=== PATIENT | female | born 1985 | race Hispanic/Latino ===

== ENCOUNTER 2018-12-10 16:29 | Inpatient (IN) | payer BC ==
[2018-12-10] MEDS ORDERED: Piperacillin/Tazobactam 4.5 GM VIAL ONE (17:31)
[2018-12-10] MEDS ORDERED: Sodium Chloride 0.9% 100 ML ONE (17:32)
--- NOTE | 2018-12-10 17:50 | RAD ---
LEFT TIBIA AND FIBULA 2 VIEWS: Dt: 12/10/18 HISTORY: Tibia and fibula pain. FINDINGS: There are no signs of fracture or other acute bony findings. IMPRESSION: No acute findings. POS: [facility]
[2018-12-10 18:24] LABS: #Basophils 0.1 thou/uL (0.0-0.2); #Eosinphils 0.1 thou/uL (0.0-0.7); #Monocytes 0.4 thou/uL (0.11-0.59); #Neutrophils 5.2 thou/uL (1.40-6.50); %Basophils 0.8 % (0.0-1.0); %Eosinophils 1.6 % (0.0-10.0); %Lymphocytes 33.6 % (21.0-51.0); %Monocytes 4.7 % (0.0-10.0); %Neutrophils 59.3 % (42.0-75.0); Hemoglobin 12.6 g/dL (12.0-16.0); Mean Corpuscular HGB CONC 32.8 g/dL (32.0-36.0); Mean Corpuscular Hemoglobin 30.9 pg (27.0-31.0); Mean Corpuscular Volume 94.2 fL (78.0-98.0); Mean Platelet Volume 7.7 fL (7.4-10.4); Platelet Count 325 thou/uL (130-400); RBC Distribution Width 11.7 % (11.5-14.5); Red Blood Cell (RBC) Count 4.09 mill/uL (4.20-5.40); White Blood Cell (WBC) Count 8.8 thou/uL (4.8-10.8)
[2018-12-10 18:45] LABS: BHCG - Serum Negative (NEGATIVE); Pregs Control Background? CLEAR/WHITE (CLR/WHITE); Pregs Control Bar Appear? YES (CONTROL BAR)
[2018-12-10 19:02] LABS: Chloride 105 mmol/L (98-107); Potassium 4.1 mmol/L (3.5-5.1); Sodium 135 mmol/L (136-145)
[2018-12-10 19:03] LABS: Calcium 9.7 mg/dL (7.8-10.44)
[2018-12-10 19:04] LABS: Globulin 4.1 g/dL (2.4-3.5); Glucose 84 mg/dL (70-105); Protein, Total 8.1 g/dL (6.0-8.3)
[2018-12-10 19:05] LABS: Anion Gap 14 mmol/L (10-20); Bilirubin, Total 0.3 mg/dL (0.2-1.2); Carbon Dioxide 20 mmol/L (22-29)
[2018-12-10 19:06] LABS: Alkaline Phosphatase 49 U/L (40-150)
[2018-12-10 19:07] LABS: Calc. Creatinine Clearance 0 mL/min (70-130); Estimated GFR-MDRD 82
[2018-12-10 19:08] LABS: BUN (Urea Nitrogen) 17 mg/dL (7.0-18.7)
[2018-12-10 19:09] LABS: AST (SGOT) 18 U/L (5-34)
--- NOTE | 2018-12-10 19:09 | ULT ---
LEFT LOWER EXTREMITY VENOUS DUPLEX STUDY: Indication: Left lower extremity pain and edema. Injury 9 days ago. FINDINGS: Deep veins of left lower extremity were evaluated with color doppler and spectral analysis. Compressi on study is performed. There is normal compression and blood flow. No evidence of DVT. IMPRESSION: No evidence of left lower extremity DVT. POS: [facility]
[2018-12-10 19:10] LABS: ALT (SGPT) 15 U/L (8-55)
--- NOTE | 2018-12-10 20:28 | HP ---
PRIMARY CARE PHYSICIAN: Dr. Hugo Rodas. CHIEF COMPLAINT: Left lower extremity infection and wound. HISTORY OF PRESENT ILLNESS: Ms. Larsen is a 33-year-old female with no past medical history, who presents to the emergency department for worsening left lower extremity cellulitis. The patient's swelling started after she fell around like a week and a half ago. The patient used some rubbing alcohol, but did not help her much. The patient was seen by her primary care physician and was started her on clindamycin. The patient has been on clindamycin for a week without any help. The patient was also taking Bactrim as well. The patient denies any fever or chills, but does report pain. The patient denies any history of diabetes. The patient was accompanied by her . The patient denies any nausea, vomiting, diarrhea, or abdominal pain. ALLERGIES: NO KNOWN ALLERGIES TO DRUGS. CURRENT MEDICATIONS: 1. Bactrim. 2. Clindamycin. SOCIAL HISTORY: The patient denies any drug use, alcohol, or smoking. FAMILY HISTORY: Reports history of diabetes. PAST SURGICAL HISTORY: No known surgical history. PAST MEDICAL HISTORY: No known past medical history. REVIEW OF SYSTEMS: A 10-point review of system negative other than mentioned in the HPI. PHYSICAL EXAMINATION: VITAL SIGNS: Blood pressure of 108/63, pulse 85, respiratory rate 20, temperature 97.8, O2 saturation 96% on room air. GENERAL: The patient is alert and cooperative. HEAD: Atraumatic. EARS, NOSE, AND THROAT: No exudate or swelling or discharge noted. EYES: Extraocular movement intact. NECK: No lymphadenopathy noted. CARDIOVASCULAR: Regular rate and rhythm. No murmur, rubs, or gallops. PULMONARY: Clear bilaterally. No wheezes. ABDOMEN: Soft, nontender. Bowel sounds positive. EXTREMITIES: Right lower extremity within normal limits. Left lower extremity below knee and above the ankle, the patient has erythema, swelling, and tenderness. There seems to be abrasion, which seems to be non-oozing or bleeding at this point. NEURO: The patient is alert. SKIN: Except for mentioned in the extremity examination appears to be normal. LABORATORY DATA: Sodium 135, potassium 4.1, chloride 105, carbon dioxide 20, BUN 17, creatinine 0.8, and glucose 84. Lactic acid 1.9. CRP 3.25. test negative. WBC 8.8, hemoglobin 12.6, hematocrit 38.6, and platelets 325. DIAGNOSTIC STUDIES: Ultrasound, DVT negative. X-ray of tibia and fibula of left lower extremity, negative for acute abnormality. ASSESSMENT AND PLAN: 1. Cellulitis of left lower extremity, failed outpatient treatment with clindamycin and Bactrim. The patient was given Zosyn and vancomycin in the ER. We will continue those two medications. Wound culture, blood cultures ordered. 2. We will have pain control. We will have IV fluids for one day. Wound care consult ordered. 3. Medical power of criminal attorney, . 4. The patient is full code. Deep venous thrombosis prophylaxis, addressed. Job ID: [id number]
[2018-12-10] MEDS ORDERED: Bisacodyl 5 MG TAB PO PRN (20:37)
[2018-12-10] MEDS ORDERED: Ondansetron PF 4 MG/2 ML Vial IVP PRN (20:37)
[2018-12-10] MEDS: Acetaminophen 325 MG TAB PO PRN (21:28)
[2018-12-10] MEDS: Sodium Chloride 0.9% 1,000 ML IV SCH (21:28)
[2018-12-10 21:52] VITALS: BMI 54.5
[2018-12-11] MEDS: Piperacillin/Tazobactam 3.375 GM in Sodium Chloride 0.9% 100 ML IVPB SCH ×4 (00:01→17:40)
[2018-12-11] MEDS: HYDROcodone/Acetaminophen 5/325 mg Tablet PO PRN ×3 (05:32→17:46)
[2018-12-11] MEDS: Sodium Chloride 0.9% 1,000 ML IV SCH (05:36)
[2018-12-11 07:40] LABS: #Basophils 0.1 thou/uL (0.0-0.2); #Eosinphils 0.3 thou/uL (0.0-0.7); #Lymphocytes 2.1 thou/uL (1.20-3.40); #Monocytes 0.5 thou/uL (0.11-0.59); #Neutrophils 3.2 thou/uL (1.40-6.50); %Basophils 1.1 % (0.0-1.0); %Eosinophils 4.3 % (0.0-10.0); %Lymphocytes 34.5 % (21.0-51.0); %Monocytes 8.3 % (0.0-10.0); %Neutrophils 51.7 % (42.0-75.0); Hemoglobin 11.8 g/dL (12.0-16.0); Mean Corpuscular HGB CONC 32.3 g/dL (32.0-36.0); Mean Corpuscular Hemoglobin 31.3 pg (27.0-31.0); Platelet Count 293 thou/uL (130-400); RBC Distribution Width 11.9 % (11.5-14.5); Red Blood Cell (RBC) Count 3.77 mill/uL (4.20-5.40); White Blood Cell (WBC) Count 6.2 thou/uL (4.8-10.8)
[2018-12-11 08:05] LABS: Anion Gap 11 mmol/L (10-20); BUN (Urea Nitrogen) 11 mg/dL (7.0-18.7); Calc. Creatinine Clearance 271 mL/min (70-130); Calcium 8.8 mg/dL (7.8-10.44); Carbon Dioxide 20 mmol/L (22-29); Chloride 108 mmol/L (98-107); Estimated GFR-MDRD Greater than 90; Glucose 84 mg/dL (70-105); Potassium 4.3 mmol/L (3.5-5.1); Sodium 135 mmol/L (136-145)
[2018-12-11] MEDS: Enoxaparin Sodium 40 MG/0.4 ML SYRINGE SC SCH (08:08)
[2018-12-11] MEDS: Triple Antibiotic Oint 1 GM Packet TOP SCH ×2 (14:20→20:20)
--- NOTE | 2018-12-11 16:33 | PDOC.PN ---
- Subjective Encounter Start Date: 12/11/18 Encounter Start Time: 16:31 Ms. Larsen was seen today in follow-up of cellulitis. She does not have any complaints today. - Objective Resuscitation Status - Order Detail: 12/10/18 19:51 Resuscitation Status Routine Resuscitation Status: FULL: Full Resuscitation MAR Reviewed: Yes Vital Signs & Weight: Vital Signs (12 hours) Temp Pulse Resp BP Pulse Ox 12/11/18 11:46 97.4 F L 74 18 107/71 91 L 12/11/18 08:00 96 Weight Weight 338 lb I&O: 12/10/18 12/11/18 12/12/18 06:59 06:59 06:59 Intake Total 1600 Balance 1600 Result Diagrams: 12/11/18 07:05 12/11/18 07:05 Phys Exam - Physical Examination HEENT: PERRLA Respiratory: no wheezing, no rales, no rhonchi, clear to auscultation bilateral Cardiovascular: RRR, no significant murmur, no rub Gastrointestinal: soft, non-tender, positive bowel sounds denuded skin on the left domínguez, with some clear weeping fluid surrunding erythema, and induration, no fluctuance Musculoskeletal: pulses present Dx/Plan (1) Cellulitis of left lower leg Code(s): L03.116 - CELLULITIS OF LEFT LOWER LIMB Status: Acute (2) Obesity, morbid, BMI 50 or higher Code(s): E66.01 - MORBID (SEVERE) OBESITY DUE TO EXCESS CALORIES Status: Acute - Plan * Cellulitis of the left lower extremity- she has failed outpatient treatment- will continue Vancomycin and Zosyn for a few more days * Obesity- will consult the [facility] for weight loss * .
[2018-12-11] MEDS: Acetaminophen 325 MG TAB PO PRN (20:19)
[2018-12-12] MEDS: Piperacillin/Tazobactam 3.375 GM in Sodium Chloride 0.9% 100 ML IVPB SCH ×5 (00:08→23:33)
[2018-12-12] MEDS: HYDROcodone/Acetaminophen 5/325 mg Tablet PO PRN ×2 (02:02→15:24)
[2018-12-12] MEDS: Enoxaparin Sodium 40 MG/0.4 ML SYRINGE SC SCH (08:04)
[2018-12-12] MEDS: Triple Antibiotic Oint 1 GM Packet TOP SCH ×3 (08:05→21:26)
[2018-12-12] MEDS: Acetaminophen 325 MG TAB PO PRN (08:11)
[2018-12-12 10:19] LABS: Vancomycin, Trough 12.9 ug/mL
--- NOTE | 2018-12-12 16:01 | PDOC.PN ---
- Subjective Encounter Start Date: 12/12/18 Encounter Start Time: 12:25 Ms. Larsen was seen today in follow-up of cellulitis of the left leg. She feels that her leg has improved. She does not have any new complaints. - Objective Resuscitation Status - Order Detail: 12/10/18 19:51 Resuscitation Status Routine Resuscitation Status: FULL: Full Resuscitation MAR Reviewed: Yes Vital Signs & Weight: Vital Signs (12 hours) Temp Pulse Resp BP Pulse Ox 12/12/18 08:27 97.5 F L 62 16 120/78 97 12/12/18 08:00 97 Weight Weight 338 lb I&O: 12/11/18 12/12/18 12/13/18 06:59 06:59 06:59 Intake Total 1600 4300 720 Balance 1600 4300 720 Result Diagrams: 12/11/18 07:05 12/11/18 07:05 Phys Exam - Physical Examination HEENT: PERRLA Respiratory: no wheezing, no rales, no rhonchi, clear to auscultation bilateral Cardiovascular: RRR, no significant murmur, no rub Gastrointestinal: soft, non-tender, no distention, positive bowel sounds Musculoskeletal: pulses present, edema present + excoriation on the left domínguez, with surrounding erythema improved Dx/Plan (1) Cellulitis of left lower leg Code(s): L03.116 - CELLULITIS OF LEFT LOWER LIMB Status: Acute (2) Obesity, morbid, BMI 50 or higher Code(s): E66.01 - MORBID (SEVERE) OBESITY DUE TO EXCESS CALORIES Status: Acute - Plan * Cellulitis- failed outpatient treatment- continue Zosyn and Vancomycin * Hopefully home tomorrow on oral antibiotics.
[2018-12-13] MEDS: Piperacillin/Tazobactam 3.375 GM in Sodium Chloride 0.9% 100 ML IVPB SCH ×2 (05:24→11:03)
[2018-12-13] MEDS: Triple Antibiotic Oint 1 GM Packet TOP SCH ×2 (08:02→15:55)
[2018-12-13] MEDS: Enoxaparin Sodium 40 MG/0.4 ML SYRINGE SC SCH (08:02)
[2018-12-13] MEDS: HYDROcodone/Acetaminophen 5/325 mg Tablet PO PRN (08:07)
[2018-12-13 08:12] VITALS: BP 117/79; TEMP 97.2
--- NOTE | 2018-12-13 12:30 | PDOC.PN ---
- Subjective Encounter Start Date: 12/13/18 Encounter Start Time: 12:28 Ms. Larsen was seen today in follow-up of cellulitis of the left lower extremity. She does not have any new complaints. She feels her leg has improved. - Objective Resuscitation Status - Order Detail: 12/10/18 19:51 Resuscitation Status Routine Resuscitation Status: FULL: Full Resuscitation MAR Reviewed: Yes Vital Signs & Weight: Vital Signs (12 hours) Temp Pulse Resp BP Pulse Ox 12/13/18 08:00 97.2 F L 74 18 117/79 97 Weight Weight 338 lb I&O: 12/12/18 12/13/18 12/14/18 06:59 06:59 06:59 Intake Total 4300 1080 360 Balance 4300 1080 360 Result Diagrams: 12/11/18 07:05 12/11/18 07:05 Phys Exam - Physical Examination Respiratory: no wheezing, no rales, no rhonchi, clear to auscultation bilateral Cardiovascular: RRR, no significant murmur, no rub Gastrointestinal: soft, non-tender, positive bowel sounds Musculoskeletal: pulses present, edema present + mild improving erythema of th left lower extremity Dx/Plan (1) Cellulitis of left lower leg Code(s): L03.116 - CELLULITIS OF LEFT LOWER LIMB Status: Acute (2) Obesity, morbid, BMI 50 or higher Code(s): E66.01 - MORBID (SEVERE) OBESITY DUE TO EXCESS CALORIES Status: Acute - Plan * Cellulitis of the left leg- improving * She is stable for discharge home with close outpatient follow-up..
--- NOTE | 2018-12-14 03:56 | DIS ---
DATE OF ADMISSION: 12/10/2018 DATE OF DISCHARGE: 12/13/2018 PRIMARY CARE PHYSICIAN: Hugo Rodas MD. DISCHARGE DISPOSITION: Home. PRIMARY DISCHARGE DIAGNOSES: 1. Cellulitis, failed outpatient treatment. 2. Morbid obesity. DISCHARGE MEDICATIONS: Include doxycycline 100 mg twice a day for 2 weeks. CODE STATUS: Full code. ALLERGIES: NO KNOWN DRUG ALLERGIES. PROCEDURES DONE DURING ADMISSION: The patient had a venous Doppler of the lower extremity, which was negative for DVT of the left leg, also had an x-ray of the tibia and fibula, which was essentially negative. HOSPITAL COURSE: Ms. Larsen is a pleasant 33-year-old female who suffered a fall as she was stepping down on some pavement. She fell and had a large scrape on the left extremity. This later became infected. She saw her primary care physician who prescribed Bactrim and clindamycin. However, the patient says that the redness and pain around the area as well as swelling got worse. She admitted that she had been trying to work where she is up on her legs most of the time. Because of the failed outpatient trial of treatment for the cellulitis, she was brought into the hospital and placed on IV antibiotics. She did well over the course of the next couple of days, was transitioned over to an oral antibiotic, and will be discharged home. At this time, it has been recommended that she stay off work and keep her leg elevated when possible. Also, she will be given a referral to the [facility] due to the large area of denuded skin on the left lower extremity, as well as she has been instructed to have close followup with her primary care physician. Job ID: [id number]
== END 2018-12-13 16:18 | disposition home or self-care (01) | DRG 603 ==
LOC: ERS 16:29 → T4-B 20:15
PROVIDERS: ADMIT Emergency Medicine; ATTEND Emergency Medicine
DX: L03.116 Cellulitis of left lower limb (principal); Z68.43 Body mass index [BMI] 50.0-59.9, adult; E66.01 Morbid (severe) obesity due to excess calories
CPT/HCPCS: 36415; 80048; 80053; 80202; 83605; 84703; 85025; 85652; 86140; 87040; J1650; J2543; J3370; J7050

== ENCOUNTER 2019-01-03 07:58 | Outpatient (CLI) | payer BC ==
--- NOTE | 2019-01-03 10:33 | HP ---
HISTORY OF PRESENT ILLNESS: Ms. Gloria Larsen is a very pleasant 33-year-old, who presents to the Wound Center for evaluation of a wound of the left anterior lower leg. The patient states that she scraped her left anterior lower leg on a brick as she fell onto concrete. The patient states that she treated the wound with Neosporin followed by the application of a bandage. She states that after she sought medical attention, she was placed on dressing changes of Silvadene. At this time, she was also placed on a course of p.o. antibiotics. The patient states that at her second followup visit, she was admitted to [facility] for further evaluation and treatment. Upon her discharge from [facility], the patient was referred to the Wound Center. PAST MEDICAL HISTORY: Negative for diabetes mellitus, coronary artery disease, or hypertension. PAST SURGICAL HISTORY: Negative. MEDICATIONS: Aleve as needed for pain. ALLERGIES: NO KNOWN DIAGNOSED ALLERGIES. SOCIAL HISTORY: Social history is negative for tobacco or EtOH use. FAMILY HISTORY: Family history is significant for diabetes mellitus. The patient states that she has multiple relatives on the maternal side of her family, who are diagnosed with diabetes mellitus. Family history is also significant for coronary artery disease. The patient states that her maternal grandfather was diagnosed with coronary artery disease. PHYSICAL EXAMINATION: VITAL SIGNS: Temperature 97.9, pulse 73, blood pressure 134/63. GENERAL: A 33-year-old female, sitting on table in examination room, in no acute distress. HEENT: Normocephalic and atraumatic. NECK: No nuchal rigidity. CHEST: Clear to auscultation. CARDIOVASCULAR: Regular rate and rhythm. ABDOMEN: Soft. EXTREMITIES: A wound of the left anterior lower leg is present, which measures approximately 4.5 x 2.9 cm. Granulation tissue is visible within the wound margins. Necrotic and nonviable tissue present within the wound margins was debrided with an excisional full-thickness debridement with the use of a curette and scissors. No purulent drainage is associated with the wound. No erythema of the skin surrounding the wound is present. No maceration of the skin of the periwound is noted. A dorsalis pedis pulse is palpable on the left. No significant edema of the left foot or lower leg is present on exam today. NEUROLOGIC: Grossly nonfocal. ASSESSMENT AND PLAN: Wound of left anterior lower leg as described above. Dressing changes of Shahid and Susana are to be performed 3 times per week after cleansing and irrigation. The patient will be performing her own dressing changes. No antibiotics will be prescribed today based upon the appearance of the wound. I will see Ms. Larsen again in 1 week. The patient understands and is in agreement with the preceding treatment plan. Job ID: [id number]
[2019-01-03] MEDS ORDERED: Sodium Chloride 0.9% 15 ML NEB ONE (19:49)
[2019-01-03] MEDS ORDERED: Lidocaine 2% 11 ML SYR ONE (19:49)
== END 2019-01-03 07:59 | disposition home or self-care (01) ==
LOC: WCC 07:58
PROVIDERS: ATTEND Family Medicine
DX: S81.802D Unspecified open wound, left lower leg, subsequent encounter (principal)
CPT/HCPCS: 11042; 99203; A4218; G0463

== ENCOUNTER 2019-01-10 14:45 | Outpatient (CLI) | payer BC ==
[~2019-01-10 14:45] MED LIST: Sodium Chloride 0.9% 15 ML NEB ONE
--- NOTE | 2019-01-10 15:48 | PRG ---
DATE OF SERVICE: 01/10/2019 HISTORY: Ms. Gloria Larsen is a very pleasant 33-year-old, who presents to the Wound Center for evaluation of a wound of the left anterior lower leg. The patient previously stated that she scraped her left anterior lower leg on a brick as she fell onto concrete. The patient stated that she treated the wound with Neosporin followed by the application of a bandage. She stated that after she sought medical attention, she was placed on dressing changes of Silvadene. At this time, she was also placed on a course of p.o. antibiotics. The patient stated that at her second followup visit, she was admitted to [facility] for further evaluation and treatment. Upon her discharge from [facility], the patient was referred to the Wound Center. After being seen in the Wound Center, the patient was placed on dressing changes of Medihoney and Allevyn 3 times per week after cleansing and irrigation. PHYSICAL EXAMINATION: VITAL SIGNS: Temperature 97.6, pulse 89, blood pressure 116/67. EXTREMITIES: A wound of the left anterior lower leg is present, which measures approximately 4.0 x 1.8 cm. The dimensions of the wound at the time of the patient's visit on 01/03/2019 were approximately 4.5 x 2.9 cm. Granulation tissue is visible within the wound margins. Necrotic and nonviable tissue present within the wound margins was debrided with an excisional full-thickness debridement. No purulent drainage is associated with the wound. No erythema of the skin surrounding the wound is present. No maceration of the skin of the periwound is noted. No significant edema of the left foot or lower leg is present on exam today. ASSESSMENT AND PLAN: Wound of left anterior lower leg as described above. Dressing changes of Medihoney and Allevyn will be continued 3 times per week after cleansing and irrigation. I will see Ms. Larsen again in 1 week. Job ID: [id number]
== END 2019-01-10 14:46 | disposition home or self-care (01) ==
LOC: WCC 14:45
PROVIDERS: ATTEND Family Medicine
DX: S81.802D Unspecified open wound, left lower leg, subsequent encounter (principal)
CPT/HCPCS: 11042; A4218

== ENCOUNTER 2019-01-17 15:16 | Outpatient (CLI) | payer BC ==
--- NOTE | 2019-01-17 16:17 | PRG ---
DATE OF SERVICE: 01/17/2019 HISTORY: Ms. Gloria Larsen is a very pleasant 33-year-old, who presents to the Wound Center for a wound of the left anterior lower leg. The patient previously stated that she scraped her left anterior lower leg on a brick as she fell onto concrete. The patient stated that she treated the wound with Neosporin followed by the application of a bandage. She stated that after she sought medical attention, she was placed on dressing changes of Silvadene. At this time, she was also placed on a course of p.o. antibiotics. The patient stated that at her second followup visit, she was admitted to [facility] for further evaluation and treatment. Upon her discharge from [facility], the patient was referred to the Wound Center. After being seen in the Wound Center, the patient was placed on dressing changes of Medihoney and Allevyn 3 times per week after cleansing and irrigation. PHYSICAL EXAMINATION: VITAL SIGNS: Temperature 98.2, pulse 88, blood pressure 112/62. EXTREMITIES: A wound of the left anterior lower leg is present, which measures approximately 3.5 x 1.6 cm. The dimensions of the wound at the time of the patient's visit on 01/10/2019 were approximately 4.0 x 1.8 cm. Granulation tissue is present within the wound margins. Necrotic and nonviable tissue present within the wound margins was debrided with an excisional full-thickness debridement with the use of a curette and scissors. No purulent drainage is associated with the wound. No erythema of the skin surrounding the wound is present. No maceration of the skin of the periwound is noted. No significant edema of the left foot or lower leg is present on exam today. ASSESSMENT AND PLAN: Wound of left anterior lower leg as described above. Dressing changes of Medihoney and Allevyn will be continued 3 times per week after cleansing and irrigation. I will see Ms. Larsen again in 1 week. Job ID: [id number]
[2019-01-17] MEDS ORDERED: Lidocaine 2% 11 ML SYR ONE (18:00)
[2019-01-17] MEDS ORDERED: Sodium Chloride 0.9% 15 ML NEB ONE (18:00)
== END 2019-01-17 15:17 | disposition home or self-care (01) ==
LOC: WCC 15:16
PROVIDERS: ATTEND Family Medicine
DX: S81.802D Unspecified open wound, left lower leg, subsequent encounter (principal)
CPT/HCPCS: A4218

== ENCOUNTER 2019-01-24 15:10 | Outpatient (CLI) | payer BC ==
--- NOTE | 2019-01-24 16:20 | PRG ---
DATE OF SERVICE: 01/24/2019 HISTORY OF PRESENT ILLNESS: Ms. Gloria Larsen is a very pleasant 33-year-old, who presents to the Wound Center for evaluation of a wound of the left anterior lower leg. The patient previously stated that she scraped her left anterior lower leg on a brick as she fell onto concrete. The patient stated that she treated the wound with Neosporin followed by the application of a bandage. She stated that after she sought medical attention, she was placed on dressing changes of Silvadene. At this time, she was also placed on a course of p.o. antibiotics. The patient stated that at her second followup visit, she was admitted to [facility] for further evaluation and treatment. Upon her discharge from [facility], the patient was referred to the Wound Center. After being seen in the Wound Center, the patient was placed on dressing changes of Medihoney and Allevyn 3 times per week after cleansing and irrigation. PHYSICAL EXAMINATION: VITAL SIGNS: Temperature 98.3, pulse 88, respirations 19, and blood pressure 116/71. EXTREMITIES: A wound of the left anterior lower leg is present, which measures approximately 3.5 x 1.7 cm. Granulation tissue is present within the wound margins. Necrotic and nonviable tissue present within the wound margins that was debrided with an excisional full-thickness debridement with the use of a curette and scissors. No purulent drainage is associated with the wound. No erythema of the skin surrounding the wound is present. No maceration of the skin of the periwound is noted. No significant edema of the left foot or lower leg is present on exam today. ASSESSMENT AND PLAN: Wound of left anterior lower leg as described above. Dressing changes of Medihoney and Allevyn will be continued 3 times per week after cleansing and irrigation. I will see Ms. Larsen again in 1 week. Job ID: [id number]
[2019-01-24] MEDS ORDERED: Lidocaine 2% 11 ML SYR ONE (21:32)
[2019-01-24] MEDS ORDERED: Sodium Chloride 0.9% 15 ML NEB ONE (21:32)
== END 2019-01-24 15:11 | disposition home or self-care (01) ==
LOC: WCC 15:10
PROVIDERS: ATTEND Family Medicine
DX: S81.802A Unspecified open wound, left lower leg, initial encounter (principal)
CPT/HCPCS: A4218

== ENCOUNTER 2019-01-31 15:05 | Outpatient (CLI) | payer BC ==
--- NOTE | 2019-01-31 16:09 | PRG ---
DATE OF SERVICE: 01/31/2019 HISTORY: Ms. Gloria Larsen is a very pleasant 33-year-old, who presents to the Wound Center for evaluation of a wound of her left anterior lower leg. Previously, the patient stated that she scraped her left anterior lower leg on a brick as she fell onto concrete. The patient stated that she treated the wound with Neosporin followed by the application of a bandage. She stated that after she sought medical attention, she was placed on dressing changes of Silvadene. At this time, she was also placed on a course of p.o. antibiotics. The patient stated that at her second followup visit, she was admitted to [facility] for further evaluation and treatment. Upon her discharge from [facility], the patient was referred to the Wound Center. After being seen in the Wound Center, the patient was placed on dressing changes of Medihoney and Allevyn 3 times per week after cleansing and irrigation. PHYSICAL EXAMINATION: VITAL SIGNS: Temperature 98.1, pulse 83, blood pressure 98/51. EXTREMITIES: A wound of the left anterior lower leg is present, which measures approximately 3.0 x 1.3 cm. The dimensions of the wound at the time of the patient's last visit were approximately 3.5 x 1.7 cm. Granulation tissue is present within the wound margins. Necrotic and nonviable tissue present within the wound margins was debrided with an excisional full-thickness debridement with the use of a curette. No purulent drainage is associated with the wound. No erythema of the skin surrounding the wound is present. No maceration of the skin of the periwound is noted. No significant edema of the left foot or lower leg is present on exam today. ASSESSMENT AND PLAN: Wound of left anterior lower leg as described above. Dressing changes of Medihoney alginate and Allevyn are to be performed 3 times per week after cleansing and irrigation. I will see Ms. Larsen again in 1 week. Job ID: [id number]
[2019-01-31] MEDS ORDERED: Sodium Chloride 0.9% 15 ML NEB ONE (17:26)
== END 2019-01-31 15:06 | disposition home or self-care (01) ==
LOC: WCC 15:05
PROVIDERS: ATTEND Family Medicine
DX: T81.89XD Other complications of procedures, not elsewhere classified, subsequent encounter (principal)
CPT/HCPCS: 11042; A4218

== ENCOUNTER 2019-02-07 15:00 | Outpatient (CLI) | payer BC ==
[2019-02-07] MEDS ORDERED: Lidocaine 2% 11 ML SYR ONE (16:26)
[2019-02-07] MEDS ORDERED: Sodium Chloride 0.9% 15 ML NEB ONE (16:26)
--- NOTE | 2019-02-07 17:17 | PRG ---
DATE OF SERVICE: HISTORY: Ms. Gloria Larsen is a very pleasant 33-year-old, who presents to the Wound Center for evaluation of a wound of her left anterior lower leg. Previously, the patient stated that she scraped her left anterior lower leg on a brick as she fell onto concrete. The patient stated that she treated the wound with Neosporin followed by the application of a bandage. She stated that after she sought medical attention, she was placed on dressing changes of Silvadene. At this time, she was also placed on a course of p.o. antibiotics. The patient stated that at her second followup visit, she was admitted to [facility] for further evaluation and treatment. Upon her discharge from [facility], the patient was referred to the Wound Center. After being seen in the Wound Center, the patient was placed on dressing changes of Medihoney and Allevyn 3 times per week after cleansing and irrigation. OBJECTIVE: VITAL SIGNS: Temperature 98.4, pulse 88, blood pressure 105/58. EXTREMITIES: A wound of the left anterior lower leg is present which measures approximately 2.7 x 1.4 cm. The dimensions of the wound at the time of the patient's last visit were approximately 3.0 x 1.3 cm. Granulation tissue is present within the wound margins. Necrotic and nonviable tissue present within the wound margins was debrided with an excisional full-thickness debridement with the use of a curette. No purulent drainage is associated with the wound. No erythema of the skin surrounding the wound is present. No maceration of the skin of the periwound is noted. No significant edema of the left foot or lower leg is present on exam today. ASSESSMENT AND PLAN: Wound of left anterior lower leg as described above. Dressing changes of Medihoney alginate and Allevyn will be continued 3 times per week after cleansing and irrigation. I will see Ms. Larsen again in 1 week. At this time, consideration will be given to treatment with a compression wrap. The patient understands and is in agreement with the preceding treatment plan. Job ID: [id number]
== END 2019-02-07 15:01 | disposition home or self-care (01) ==
LOC: WCC 15:00
PROVIDERS: ATTEND Family Medicine
DX: S81.802D Unspecified open wound, left lower leg, subsequent encounter (principal)
CPT/HCPCS: 11042; A4218

== ENCOUNTER 2019-02-14 15:32 | Outpatient (CLI) | payer BC ==
--- NOTE | 2019-02-14 16:09 | PRG ---
DATE OF SERVICE: 02/14/2019 HISTORY: Ms. Gloria Larsen is a very pleasant 33-year-old, who presents to the [facility]ound Center for evaluation of a wound of her left anterior lower leg. The patient previously stated that she scraped her left anterior lower leg on a brick as she fell onto a concrete. The patient stated that she treated the wound with Neosporin followed by the application of a bandage. She stated that after she sought medical attention, she was placed on dressing changes of Silvadene. At this time, she was also placed on a course of p.o. antibiotics. The patient stated that at her second followup visit, she was admitted to [facility] for further evaluation and treatment. Upon her discharge from [facility], the patient was referred to the Wound Center. After being seen in the Wound Center, the patient was placed on dressing changes of Medihoney and Allevyn 3 times per week after cleansing and irrigation. PHYSICAL EXAMINATION: VITAL SIGNS: Temperature 98.3, pulse 84, blood pressure 108/67. EXTREMITIES: A wound of the left anterior lower leg is present which measures approximately 2.4 x 1.0 cm. The dimensions of the wound at the time of the patient's last visit were approximately 2.7 x 1.4 cm. Granulation tissue is present within the wound margins. Necrotic and nonviable tissue present within the wound margins. It was debrided with an excisional full-thickness debridement with the use of a curette. No purulent drainage is associated with the wound. No erythema of the skin surrounding the wound is present. No maceration of the skin of the periwound is noted. A dorsalis pedis pulse is easily palpable on the left. No significant edema of the left foot or lower leg is present on exam today. ASSESSMENT AND PLAN: Wound of left anterior lower leg as described above. Promogran silver cell, an ABD, Webril and the 3M Coban 2 Layer Compression System will be applied to the ulceration today. The patient is to return to the Wound Center in 1 week for a dressing change. I will see Ms. Larsen again in 2 weeks. Job ID: [id number]
[2019-02-14] MEDS ORDERED: Lidocaine 2% 11 ML SYR ONE (16:22)
[2019-02-14] MEDS ORDERED: Sodium Chloride 0.9% 15 ML NEB ONE (16:22)
== END 2019-02-14 15:33 | disposition home or self-care (01) ==
LOC: WCC 15:32
PROVIDERS: ATTEND Family Medicine
DX: T81.89XD Other complications of procedures, not elsewhere classified, subsequent encounter (principal)
CPT/HCPCS: 11042; A4218

== ENCOUNTER 2019-02-28 14:49 | Outpatient (CLI) | payer BC ==
[2019-02-28] MEDS ORDERED: Sodium Chloride 0.9% 15 ML NEB ONE (15:00)
[2019-02-28] MEDS ORDERED: Lidocaine 2% PF 100 mg/5 ml Syringe ONE (15:00)
--- NOTE | 2019-02-28 16:52 | PRG ---
DATE OF SERVICE: 02/28/2019 HISTORY: Ms. Gloria Lasren is a very pleasant 33-year-old, who presents to the Wound Center for evaluation of a wound of her left anterior lower leg. The patient previously stated that she scraped her left anterior lower leg on a brick as she fell onto concrete. The patient stated that she treated the wound with Neosporin followed by the application of a bandage. She stated that after she sought medical attention, she was placed on dressing changes of Silvadene. At this time, she was also placed on a course of p.o. antibiotics. The patient stated that at her second followup visit, she was admitted to [facility] for further evaluation and treatment. Upon her discharge from [facility], the patient was referred to the Wound Center. After being seen in the Wound Center, the patient was placed on dressing changes of Medihoney and Allevyn 3 times per week after cleansing and irrigation. The patient states she was unable to tolerate treatment of her wound with dressings utilized in conjunction with the 3M Coban 2 Layer Compression System. PHYSICAL EXAMINATION: VITAL SIGNS: Temperature 98.0, pulse 93, respirations 18, blood pressure 107/80. EXTREMITIES: A wound of the left anterior lower leg is present, which measures approximately 1.9 x 0.8 cm. The dimensions of the wound at the time of the patient's visit on 02/14/2019, were approximately 2.4 x 1.0 cm. Granulation tissue is present within the wound margins. Necrotic and nonviable tissue present within the wound margins was debrided with an excisional full-thickness debridement with the use of a curette. No purulent drainage is associated with the wound. No erythema of the skin surrounding the wound is present. No maceration of the skin of the periwound is noted. No significant edema of the left foot or lower leg is present on exam today. ASSESSMENT AND PLAN: Wound of left anterior lower leg as described above. Dressing changes of Medihoney and Allevyn will be continued 3 times per week after cleansing and irrigation. The patient will continue to perform her own dressing changes. I will see Ms. Larsen again in 1 week. Job ID: [id number]
== END 2019-02-28 14:50 | disposition home or self-care (01) ==
LOC: WCC 14:49
PROVIDERS: ATTEND Family Medicine
DX: S81.802D Unspecified open wound, left lower leg, subsequent encounter (principal)
CPT/HCPCS: 11042; A4218; J2001

== ENCOUNTER 2019-03-06 15:03 | Outpatient (CLI) | payer BC ==
[~2019-03-06 15:03] MED LIST changes: +Lidocaine 2% PF 100 mg/5 ml Syringe ONE
--- NOTE | 2019-03-06 17:11 | PRG ---
DATE OF SERVICE: 03/06/2019 HISTORY: Ms. Gloria Larsen is a very pleasant 33-year-old, who presents to the Wound Center for evaluation of a wound of her left anterior lower leg. The patient previously stated that she scraped her left anterior lower leg on a brick as she fell onto concrete. The patient stated that she treated the wound with Neosporin followed by the application of a bandage. She stated that after she sought medical attention, she was placed on dressing changes of Silvadene. At this time, she was also placed on a course of p.o. antibiotics. The patient stated that at her second followup visit, she was admitted to [facility] for further evaluation and treatment. Upon her discharge from [facility], the patient was referred to the Wound Center. After being seen in the Wound Center, the patient was placed on dressing changes of Medihoney and Allevyn 3 times per week after cleansing and irrigation. The patient was unable to tolerate treatment of her wound with dressings utilized in conjunction with the 3M Coban 2 Layer Compression System. PHYSICAL EXAMINATION: VITAL SIGNS: Temperature 97.6, pulse 77, respirations 17, blood pressure 109/64. EXTREMITIES: A wound of the left anterior lower leg is present, which measures approximately 0.4 x 0.9 cm. The dimensions of the wound at the time of the patient's visit on 02/28/2019, were approximately 1.9 x 0.8 cm. Granulation tissue is present within the wound margins. Necrotic and nonviable tissue present within the wound margins was debrided with an excisional full-thickness debridement with the use of a curette. No purulent drainage is associated with the wound. No erythema of the skin surrounding the wound is present. No maceration of the skin of the periwound is noted. No significant edema of the left foot or lower leg is present on exam today. Postdebridement measurements were approximately 0.3 x 1.0 cm. ASSESSMENT AND PLAN: Wound of left anterior lower leg as described above. Dressing changes of Medihoney and Allevyn will be continued 3 times per week after cleansing and irrigation. The patient will continue to perform her own dressing changes. I will see Ms. Larsen again in 2 weeks if her wound is still present at this time. Job ID: [id number]
== END 2019-03-06 15:04 | disposition home or self-care (01) ==
LOC: WCC 15:03
PROVIDERS: ATTEND Family Medicine
DX: S81.802D Unspecified open wound, left lower leg, subsequent encounter (principal)
CPT/HCPCS: A4218; J2001

== ENCOUNTER 2019-05-09 09:59 | Outpatient (CLI) | payer BC | END 2019-05-09 10:00 | disposition home or self-care (01) | LOC: DTY/OP 09:59 | PROVIDERS: ATTEND Family Medicine | DX: E66.01 Morbid (severe) obesity due to excess calories (principal) | CPT/HCPCS: 97802 ==

== ENCOUNTER 2019-07-08 16:07 | Outpatient (CLI) | payer BC ==
--- NOTE | 2019-07-08 16:25 | RAD ---
EXAM: 2 views of the right tibia/fibula HISTORY: Leg pain after injury COMPARISON: None FINDINGS: There is no evidence of acute fracture or dislocation. No soft tissue swelling is seen. No degenerative changes are seen in the knee or ankle. IMPRESSION: No evidence of acute osseous abnormality.
== END 2019-07-08 16:08 | disposition home or self-care (01) ==
LOC: BICRAD 16:07
PROVIDERS: ATTEND Family Medicine
DX: S89.91XA Unspecified injury of right lower leg, initial encounter (principal)

== ENCOUNTER 2021-06-04 17:03 | Emergency (ER) | payer BC, MEDICAID ==
[2021-06-04 17:40] LABS: #Basophils 0.1 thou/uL (0.0-0.2); #Eosinphils 0.1 thou/uL (0.0-0.7); #Lymphocytes 2.6 thou/uL (1.20-3.40); #Monocytes 0.6 thou/uL (0.11-0.59); #Neutrophils 6.3 thou/uL (1.40-6.50); %Basophils 0.7 % (0.0-1.0); %Eosinophils 1.1 % (0.0-10.0); %Lymphocytes 26.7 % (21.0-51.0); %Monocytes 5.8 % (0.0-10.0); %Neutrophils 65.7 % (42.0-75.0); Hemoglobin 11.5 g/dL (12.0-16.0); Mean Corpuscular HGB CONC 34.4 g/dL (32.0-36.0); Mean Corpuscular Hemoglobin 31.1 pg (27.0-31.0); Mean Corpuscular Volume 90.3 fL (78.0-98.0); Mean Platelet Volume 7.5 fL (7.4-10.4); Platelet Count 275 thou/uL (130-400); RBC Distribution Width 12.3 % (11.5-14.5); Red Blood Cell (RBC) Count 3.71 mill/uL (4.20-5.40); White Blood Cell (WBC) Count 9.6 thou/uL (4.8-10.8)
[2021-06-04 20:58] LABS: Bilirubin Negative (Negative); Blood, Urine Trace (Negative); Clarity Turbid (Clear); Glucose, Urine (Dipstick) Normal (Negative); Ketone, Urine Negative (Negative); Leukocyte 75 Leu/uL (Negative); Mucous/LPF Rare LPF (<2+); Nitrite Negative (Negative); Protein, Urine (Dipstick) 30 mg/dL (Neg-Trace); Specific Gravity, Urine 1.035 (1.002-1.036); Urobilinogen Normal mg/dL (Less than 2); pH, Urine 5.5 (5.0-9.0)
[2021-06-04 21:07] LABS: Bacteria/HPF 1+ HPF (None Seen)
== END 2021-06-04 21:41 | disposition home or self-care (01) ==
LOC: ERS 17:03
DX: O20.0 Threatened abortion (principal); O23.91 Unspecified genitourinary tract infection in pregnancy, first trimester; R82.71 Bacteriuria; Z3A.10 10 weeks gestation of pregnancy
CPT/HCPCS: 36415; 76856; 81003; 81015; 84702; 85025; 86900; 86901; 87086